=== PATIENT | female | born 1995 | race Caucasian/White ===

== ENCOUNTER 2024-03-04 08:30 | Outpatient (RCR) | payer MEDICAID, SELFPAY ==
--- NOTE | 2024-03-03 08:30 | XR_ITS ---
Examination: Nuclear medicine thyroid scan and uptake Exam date and time: March 03, 2024 0754 hours INDICATIONS: Thyroid cancer history, removal right thyroid lobe 2021 TECHNIQUE AND FINDINGS: Oral administration 290 mCi I-123 with 24 hour 6 hour uptake values recorded and scan 6 hour uptake 18.4% normal range 6-24% 24 hour uptake 38.6% normal range 10-36% Minimal activity in the right thyroid lobe Hyperfunctioning left thyroid lobe IMPRESSION: Mildly elevated thyroid uptake values at 24 hours Hyperfunctioning left thyroid lobe
[2024-03-03 08:36] LABS: HCG Qualitative,Urine Negative
== END 2024-03-09 23:59 | disposition home or self-care (01) ==
LOC: SNUC 08:30
PROVIDERS: PCP Obstetrics & Gynecology; Referring Provider Obstetrics & Gynecology; Visit Provider Obstetrics & Gynecology
DX: E07.89 Other specified disorders of thyroid (principal); Z32.00 Encounter for pregnancy test, result unknown
CPT/HCPCS: 78013; 81025; A9516